=== PATIENT | female | born 1995 | race African-American/Black ===

== ENCOUNTER 2024-05-24 22:44 | Emergency (ER) | payer OTHER, SELFPAY ==
--- NOTE | 2024-05-24 22:52 | MHC.CARE ---
Pt contacted the CARE Team about an hour ago expressing suicidal ideation to cut her wrists however reported feeling safe with plan to transport herself to [facility] ED. Pt was tearful and reported she would begin packing a bag and hung up. Pt made this call from her personal cell phone from her apartment in [place]. CARE team contacted Pt about 15 minutes later to check-in and Pt expressed not feeling safe, not being able to focus and was tearful. T/W kept Pt on the phone while contacting TRANSITION PROGRAM MANAGER crisis for assistance who recommended to contact 911. T/W facilitated EMS transport for Pt who was in agreement and help-seeking. T/W was unaware of what ED Pt may end up at. Once PD arrived to the scene, T/W ended the phone call. The following information was provided by the Pt while speaking on the phone with T/W: Pt has a prior mental hx with a dx of Bipolar Disorder, PTSD and Anxiety. Pt reported that she was admitted to [facility]'s in 2018 with a step-down to [facility]'s PHP. She reports receiving medication changes to Lamotrigine about 1-2 months ago and has been medication compliant. She denies using substances. She denies doing anything to harm herself prior or while we are talking on the phone. She reports that she has been struggling with SI for 1-2 months which has gotten unbearable within the past week. She reports that the leatha she had feelings for did not reciprocate and that her mother, which whom Pt takes care of and is located in [place], is not doing well physically. 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
--- NOTE | 2024-05-24 23:14 | ED_ITS ---
HPI - General Adult General Chief complaint: Psychiatric Symptoms Stated complaint: SI, depression,anxiety,ptsd Time Seen by Provider: 05/24/24 23:14 History of Present Illness ED Provider: Catie AMEZQUITA narrative: The patient is a 28-year-old woman with a history of depression. She is on lamotrigine. She lives in [place]. She is new in [place]. She had previously been living in [place]. Apparently she has an elderly mother living in [place], [place]. She moved to [place] to be closer to [place] to help take care of her mother. She has been feeling somewhat isolated in [place]. 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 Apparently the patient called [facility] today because she has been feeling more depressed and has had thoughts of self-harm. She has been hitting herself in the head. She has not cut herself. She has not overdosed. When she called the hospital she was put through to 1 of the members of the care team who called 911 so that an ambulance was sent to the patient has [facility]. The patient wanted come to this hospital because she was treated psychiatrically here about 6 years ago. Related Data Home Medications ?Medication ?Instructions ?Recorded ?Confirmed lamotrigine 25 mg tablet 75 mg PO BEDTIME 05/25/24 05/25/24 Allergies Allergy/AdvReac Type Severity Reaction Status Date / Time gluten [GLUTEN] AdvReac Mild CRAMPS Unverified 05/24/24 23:36 DAIRY PRODUCTS AdvReac Mild STOMACH Uncoded 05/24/24 23:36 UPSET Review of Systems 2 Review of Systems: Yes all other systems are reviewed and are negative [facility] Social History Social History Advance Directives: No Advance Directives Information Provided: Yes Do you have a plan to hurt others: No Plan Physical Exam ED Vital Signs: Vital Signs - 24 hr 05/24/24 23:21 05/25/24 00:26 Temperature 98.4 F Pulse Rate 70 Respiratory Rate 16 Blood Pressure 120/84 Pulse Oximetry 98 100 Oxygen Delivery Method Room Air Room Air BMI result Body Mass Index 28.9 Const Other: The patient is awake, alert, pleasant, cooperative. She looks as if she is ordinarily healthy. She is very pleasant. HENNJ Head: Yes normal to inspection Face and sinus: Yes normal facial exam Mouth: Normal oral and palatal mucosa present and moist mucous membranes Eyes General: appearance normal, both eyes and all related structures Neck Neck: Yes full ROM Resp Effort & Inspection: normal respiratory effort Auscultation: clear to auscultation bilaterally Cardio Rate: regular rate Rhythm: regular rhythm Heart sounds: S1 normal heart sound present and S2 normal heart sound present GI Other: Abdomen is soft and nontender Skin Other: Skin is dry and unremarkable Neuro Other: The patient is awake and alert with a normal mental status. Demeanor is pleasant. Cranial nerves are intact. She moves all extremities normally and appropriately. She is neurologically intact. Extrem Other: No peripheral edema Psych Other: Well-groomed, pleasant Medications Administered Discontinued Medications Generic Name Dose Route Start Last Admin Trade Name Freq PRN Reason Stop Dose Admin Acetaminophen 975 mg 05/24/24 23:23 05/24/24 23:54 Acetaminophen 325 Mg Tablet PO 05/24/24 23:24 975 mg ONCE ONE Administration Diphenhydramine HCl 50 mg 05/24/24 23:55 05/24/24 23:59 Diphenhydramine Hcl 25 Mg Capsule PO 05/24/24 23:56 50 mg ONCE ONE Administration Ibuprofen 400 mg 05/24/24 23:23 05/24/24 23:54 Ibuprofen 400 Mg Tablet PO 05/24/24 23:24 400 mg ONCE ONE Administration Lorazepam 1 mg 05/25/24 00:19 05/25/24 00:26 Lorazepam 1 Mg Tablet PO 05/25/24 00:20 1 mg ONCE ONE Administration Medical Decision Making Medical Decision Making [facility] Narrative: The patient is a 28-year-old female with a history of depression who presents with worsening depression. She has had thoughts of self-harm. She has been hitting herself in the head. She has been panicky. This may be due to an increase in her lamotrigine. She also has life stressors. The patient seems medically clear for evaluation by the care team. The patient will be placed in physician observation. Lab Data 05/25/24 09:22 05/25/24 09:22 Labs: Lab Results 05/25/24 05/25/24 Range/Units 00:16 09:22 WBC 5.0 (4.8-10.8) X10*3/uL RBC 4.11 L (4.20-5.50) X10*6/uL Hgb 13.3 (12.0-16.0) g/dl Hct 39.1 (37.0-47.0) % MCV 95.1 (80.0-98.0) fL MCH 32.4 (27.0-33.0) pg MCHC 34.0 (31.0-35.0) g/dl RDW 12.6 (11.0-16.0) % Plt Count 335 (160-400) X10*3/uL MPV 9.0 L (9.4-12.3) fL Immature Gran % (Auto) 0.2 (0.0-0.4) % Neut % (Auto) 47.5 (45-73) % Lymph % (Auto) 38.7 (20-40) % [place] % (Auto) 8.2 (2-11) % Eos % (Auto) 3.6 (0-4) % Baso % (Auto) 1.8 (0-2) % Lymph # (Auto) 1.9 (1.2-4.9) X10*3/uL [place] # (Auto) 0.4 (0.1-1.2) X10*3/uL Eos # (Auto) 0.2 (0.0-0.4) X10*3/uL Baso # (Auto) 0.1 (0.0-0.2) X10*3/uL Abs Immat Gran (auto) 0.01 (0.00-0.03) X10*3/uL Absolute Neuts (auto) 2.4 (2.0-8.3) x10*3/uL Absolute Nucleated RBC 0.000 (0.0-0.012) X10*3/uL Nucleated RBC % (auto) 0.0 (0.0-0.2) /100WBC POC Glucose 77 (60-115) mg/dL Discharge Plan Discharge Clinical Impression: Depression with anxiety Patient Disposition: Still a Patient Prescriptions: No Action lamotrigine 25 mg tablet 75 mg PO BEDTIME Interventions: [place]-Suicide Risk Severity Scale Last Done: 05/25/24 01:54 Print Language: Ukrainian
[2024-05-24 23:21] VITALS: BP 120/78; BP 120/84; PULSE 70; PULSE 80; RESP 16; TEMP 36.9; O2SAT 100; O2SAT 98; BMI 28.9
[2024-05-24] MEDS: Acetaminophen 325 MG TABLET 975 MG PO (23:54)
[2024-05-24] MEDS: Ibuprofen 400 MG TABLET PO (23:54)
[2024-05-24] MEDS: diphenhydrAMINE HCL 25 MG CAPSULE 50 MG PO (23:59)
[2024-05-25 00:20] LABS: Glucose, Whole Blood 77 mg/dL (60-115)
[2024-05-25 00:26] VITALS: O2SAT 100
[2024-05-25] MEDS: LORazepam 1 MG TABLET PO (00:26)
--- NOTE | 2024-05-25 01:53 | PC.NURSE ---
patient chenged over by t/w no evidence of injuery to self or contraband present patient cooperative with change.
--- NOTE | 2024-05-25 05:19 | PC.NURSE ---
during lab draw patient began to experience inceasing anxiety and verbalized seeming like a panic attack' t/w contacted charge nurse regarding what t/w perceived was vasovagal type reposne to an attemtped lab draw. benadryl had been given already then t/w observed wnl vs. patient soone thereafter expressed what she perceived to be her throat closing potential arrangements had beeen made to move client to main ed. patient seemed to imporve after some administration of ativan and then soft soothing music allowed.
[2024-05-25 09:28] LABS: MANUAL DIFF FLAG NO
[2024-05-25 09:29] LABS: Basophils Absolute Auto 0.1 X10*3/uL (0.0-0.2); Basophils Percent Auto 1.8 % (0-2); Eosinophils Absolute Auto 0.2 X10*3/uL (0.0-0.4); Eosinophils Percent Auto 3.6 % (0-4); Hematocrit 39.1 % (37.0-47.0); Hemoglobin 13.3 g/dl (12.0-16.0); Imm Gran Abs Auto 0.01 X10*3/uL (0.00-0.03); Imm Gran Pct Auto 0.2 % (0.0-0.4); Lymphocytes Absolute Auto 1.9 X10*3/uL (1.2-4.9); Lymphocytes Percent Auto 38.7 % (20-40); Mean Corpuscular Hemoglobin 32.4 pg (27.0-33.0); Mean Corpuscular Volume 95.1 fL (80.0-98.0); Monocytes Absolute Auto 0.4 X10*3/uL (0.1-1.2); Monocytes Percent Auto 8.2 % (2-11); Neutrophils Absolute Auto 2.4 x10*3/uL (2.0-8.3); Neutrophils Percent Auto 47.5 % (45-73); Platelet Count 335 X10*3/uL (160-400); Red Blood Count 4.11 X10*6/uL (4.20-5.50); Red Cell Distribution Width 12.6 % (11.0-16.0)
[2024-05-25 09:48] LABS: Acetaminophen LAB < 3 mcg/mL (<30); Salicylate < 5.0 mg/dL (15-30)
[2024-05-25 09:57] LABS: Anion Gap 10 (12-20); Blood Urea Nitrogen 8 mg/dL (9-16); Calcium 9.6 mg/dL (8.4-10.2); Carbon Dioxide 23 mmol/L (22-29); Chloride 107 mmol/L (96-108); Creatinine Clr Calc Pharmacy 106.2; Estimated Glomerular Filt Rate > 60; Ethanol < 10 mg/dL; Glucose Random 96 mg/dL (60-115); HCG Quantitative < 2 mIU/mL; Sodium 136 mmol/L (135-145)
--- NOTE | 2024-05-25 10:10 | PC.NURSE ---
patient woke up this morning, tended to her ADLS. patient made phone call. patient is polite and cooperative. patient ate breakfast. resp even and unlabored, no signs of distress.
[2024-05-25 11:36] VITALS: BP 102/62; PULSE 98; RESP 18; TEMP 37; O2SAT 99
[2024-05-25] MEDS: guaiFENesin 200 MG/10 ML 10 ML LIQUID PO (11:48)
--- NOTE | 2024-05-25 13:31 | PHA.MEDREC ---
Addendum entered by Niles Matamoros 05/25/24 13:57: reviewed Original Note: Pharmacy Consult ? Medication Reconciliation Pharmacy confirmed med rec done by nursing. Lamotrigine 25mg tabs 75mg tabs daily were confirmed and looking in claims that matched. I spoke with the patient and she confirmed the Lamotrigine 25mg tab taking 3 tabs (75mg tabs) at bedtime around 1930 and states she takes a Slynd Control tablet once daily at the same time as the Lamotrigine 25mg tab. She confirmed she took the yesterday.
[2024-05-25 14:19] LABS: Appearance Urine Cloudy; Color Urine Yellow; Glucose Urine UA Negative (Negative); Leukocyte Esterase Urine Negative (Negative); Nitrite Urine Negative (Negative); PH 8.5 (5.0-9.0); UMIC TRIGGER UACC YES; Urine Blood Trace (Negative); Urine Ketones Negative (Negative); Urine Protein Negative (Neg-Trace)
[2024-05-25 14:21] LABS: UPreg QC Valid YES; Urine Pregnancy NEGATIVE (NEGATIVE)
[2024-05-25 14:22] LABS: Bacteria Urine None Seen (None Seen); Hyaline Casts Urine 0-2 /LPF (0-2); WBC Urine 0-5 /HPF (0-5)
[2024-05-25 14:24] LABS: Amphetamine Screen Urine Not Detected (Not Detect); Barbiturates, Urine Not Detected (Not Detect); Benzodiazepines Screen Urine Not Detected (Not Detect); Buprenorphine Scr Not Detected (Not Detect); Cannabinoid Screen Urine Not Detected (Not Detect); Cocaine Screen Urine Not Detected (Not Detect); Fentanyl, urine Not Detected (Not Detect); Methadone Screen, Urine Not Detected (Not Detect); Opiate Screen Urine Not Detected (Not Detect); Oxycodone Screen Urine Not Detected (Not Detect); Phencyclidine Screen Urine Not Detected (Not Detect)
--- NOTE | 2024-05-25 17:57 | MHC.CARE ---
Patient evaluated by the CARE Team, recommendation psychiatric consultation for disposition. ED provider Dr. Hu involved with this plan
[2024-05-25 21:17] VITALS: BP 107/73; PULSE 73; RESP 18; TEMP 36.8; O2SAT 98
[2024-05-25] MEDS: DROSPIRENONE 4 MG 1 EACH PO (21:43)
[2024-05-25] MEDS: lamoTRIgine 25 MG TABLET 75 MG PO (21:45)
--- NOTE | 2024-05-25 21:52 | PC.NURSE ---
Patient is alert and oriented x4, calm and cooperative, offers no complaints at this time. Patient ambulates independently with a steady gait. Patient medicated per MAR. Plan of care ongoing.
[2024-05-26 06:00] VITALS: BP 112/68; PULSE 97; RESP 16; TEMP 36.6; O2SAT 97
--- NOTE | 2024-05-26 06:27 | PC.NURSE ---
VSS, patient had uneventful night, awaiting care team consult this morning.
--- NOTE | 2024-05-26 08:38 | PM.PSYCN ---
History of Present Illness Date of Service: 05/26/2024 Chief Complaint: SI, depression,anxiety,ptsd Discussed with referring provider: Yes Sources of Information: patient interviewed, chart reviewed and crisis/core team assessment reviewed HPI Narrative: Ms. Soni is a 28 year-old woman who was brought via EMS after she called care team reporting increased suicidal ideation in context of recently breaking up romantic relationship. In the ED, pt reported she no longer felt suicidal, that had time to think about what was going on in her life and felt calmer. She reports multiple stressors from attempting to care for her mother who is homeless, to a failed romantic relationship with someone with who she would like to have a committed and longterm relationship but this person apparently not interested in this. Pt reports hx of trauma, details not disclosed, and difficult upbringing but overall appears very resilient and has been able to complete college and currently started new job. She does not have much social supports. She adamantly denies SI/HI, plan or intent to harm herself at this point. She reports she would be open to do outpatient intensive treatment instead of inpt dmission. No psychosis. No delusions. No clear hx of clemencia or hypomania. Diagnostics Vital Signs (24Hr): Vital Signs - 24 hr 05/25/24 11:36 05/25/24 21:17 05/26/24 06:00 Temperature 98.6 F 98.2 F 97.8 F Pulse Rate 98 73 97 Respiratory Rate 18 18 16 Blood Pressure 102/62 107/73 112/68 Pulse Oximetry 99 98 97 Oxygen Delivery Method Room Air Room Air Room Air BMI result Body Mass Index 28.9 Labs 05/25/24 09:22 05/25/24 09:22 Labs: Laboratory Results - last 48 hr 05/25/24 05/25/24 05/25/24 00:16 09:22 14:06 WBC 5.0 RBC 4.11 L Hgb 13.3 Hct 39.1 MCV 95.1 MCH 32.4 MCHC 34.0 RDW 12.6 Plt Count 335 MPV 9.0 L Immature Gran % (Auto) 0.2 Neut % (Auto) 47.5 Lymph % (Auto) 38.7 [place] % (Auto) 8.2 Eos % (Auto) 3.6 Baso % (Auto) 1.8 Lymph # (Auto) 1.9 [place] # (Auto) 0.4 Eos # (Auto) 0.2 Baso # (Auto) 0.1 Abs Immat Gran (auto) 0.01 Absolute Neuts (auto) 2.4 Absolute Nucleated RBC 0.000 Nucleated RBC % (auto) 0.0 Sodium 136 Potassium 4.0 Chloride 107 Carbon Dioxide 23 Anion Gap 10 L BUN 8 L Creatinine 0.89 Estim Creat Clear Calc 106.2 Estimated GFR > 60 POC Glucose 77 Random Glucose 96 Calcium 9.6 Beta HCG, Quant < 2 Urine Color Yellow Urine Appearance Cloudy Urine pH 8.5 Ur Specific [place] 1.020 Urine Protein Negative Urine Glucose (UA) Negative Urine Ketones Negative Urine Blood Trace H Urine Nitrite Negative Ur Leukocyte Esterase Negative Urine RBC 11-20 H Urine WBC 0-5 Ur Squamous Epith Cells 3-5 Urine Bacteria None Seen Hyaline Casts 0-2 Urine Test NEGATIVE Salicylates < 5.0 L Urine Opiates Screen Not Detected Ur Buprenorphine Scrn Not Detected Ur Oxycodone Screen Not Detected Urine Methadone Screen Not Detected Urine Fentanyl Screen Not Detected Acetaminophen < 3 Ur Barbiturates Screen Not Detected Ur Phencyclidine Scrn Not Detected Ur Amphetamines Screen Not Detected U Benzodiazepines Scrn Not Detected Urine Cocaine Screen Not Detected U Marijuana (THC) Screen Not Detected Ethyl Alcohol < 10 Mental Status Exam Mental Status Exam Patient Appearance: Well Grooomed Patient Orientation: Person, Place, Time and Situation Level of Consciousness: Appropriate Patient Behavior: Cooperative Mood Description: Appropriate Affect Description: Depressed Patient Cognition Impaired: No Speech Pattern: Clear and Appropriate Hallucinations: None Delusions: Not Present Thought Process: Linear Thought Content: positive for Intact (wanting tx but not inpt) Judgement: Fair Medications Medications Current Medications Lamotrigine (Lamotrigine 25 Mg Tablet) 75 mg PO BEDTIME [facility] Last Admin: 05/25/24 21:45 Dose: 75 mg Pt Own (Drospirenone (Contraceptive) [ Slynd] 4 Mg (28) Tablet) 1 tab PO DAILY RADHA Last Admin: 05/25/24 21:43 Dose: 1 tab Allergies Allergies Allergy/AdvReac Type Severity Reaction Status Date / Time gluten [GLUTEN] AdvReac Mild CRAMPS Unverified 05/24/24 23:36 DAIRY PRODUCTS AdvReac Mild STOMACH Uncoded 05/24/24 23:36 UPSET Assessment & Plan Assessment & Plan (1) Bipolar II disorder: Status: Acute Code(s): F31.81 - Bipolar II disorder Plan Ms. Soni is a 28 year-old woman who initially called care team, reported SI, they recommended pt come for assessment. She came via EMS. In the ED, pt denies any plan or intent to harm herself. She reported feeling calmer, but open to OP intensive tx. She was referred to PHP. Pt also advised to return should SI return or worsened. Total time managing care of this patient today ____ minutes.
--- NOTE | 2024-05-26 11:48 | MHC.CARE ---
Patient reassessed by the CARE Team and seen by the psychiatric provider, disposition discharge with referral to [facility]. Dr. Macias updated and in agreement with plan.
[2024-05-26 12:24] VITALS: BP 114/53; PULSE 86; RESP 16; TEMP 36.8; O2SAT 99
[2024-05-26 12:33] VITALS: BP 114/53; PULSE 86; RESP 16; TEMP 36.8; O2SAT 99
--- NOTE | 2024-05-26 12:39 | MHC.CARE ---
Referral to [facility] PHP complete.
== END 2024-05-26 12:34 | disposition home or self-care (01) ==
PROVIDERS: Emergency Provider Emergency Medicine; PCP Internal Medicine
DX: F33.1 Major depressive disorder, recurrent, moderate (principal); R45.851 Suicidal ideations; F41.1 Generalized anxiety disorder; F43.0 Acute stress reaction; R10.2 Pelvic and perineal pain; F43.9 Reaction to severe stress, unspecified; Z51.81 Encounter for therapeutic drug level monitoring; Z79.899 Other long term (current) drug therapy
CPT/HCPCS: 36415; 80048; 80143; 80179; 80307; 81001; 81025; 82947; 84702; 85025; 99285; S9485

== ENCOUNTER → 2024-05-24 23:52 | Outpatient (BNV) | payer OTHER, SELFPAY | PROVIDERS: Emergency Provider Emergency Medicine; PCP Internal Medicine; Visit Provider Social Worker | DX: F31.81 Bipolar II disorder (principal) | CPT/HCPCS: 99285 ==

== ENCOUNTER 2024-06-05 12:46 | Outpatient (REF) | payer OTHER, SELFPAY ==
--- OUTSIDE RECORDS SUMMARY | 2024-06-10 08:29 | XMS_ITS | Continuity of Care Document ---
Author Organization [facility] Address [address] [place] [address] Phone Care Team Providers Care Manager Java Name Role Phone Issac Lizarraga OD Unavailable Unavailable Allergies, Adverse Reactions, Alerts Substance Reaction Status Criticality No Known allergies Procedures Procedure Date EYE EXAM, NEW PATIENT REFRACTION Advance Directives Directive Yes / No Effective Date File Name No Information Encounters Encounter Description Practice Location Reason(s) For Visit Diagnoses Date Provider Providers Copied on Encounter [facility], [address] [place], [place], [facility]ly [facility], tel:[phone] [place] blurry vision (chief complaint) Refractive Error UnspecifiedRefr active Error Unspecified 4 Zia Davenport. [facility], [address] [facility] [address] , [place] [address], . tel:[phone] Referring Provider: Issac Perez, [facility] [address] [facility] [address] [place] [address]. tel:[phone] Family History Family Member Type Diagnosis Age At Onset No Information Payers Payer name Insurance type Covered republican ID Authoriza tion(s) [facility] Health Plan CI [id number] Social History Type Description Quantity Date Captured Comments Alcohol Use Details No Caffeine Use Details 1 cup per day Tobacco Use Status No Information Smoking Status No Information Sex Female Chief Complaint And Reason For Visit From encounter dated '11/19/2013 10:00'. blurry vision (chief complaint) Reason For Referral Reason For Referral No Information History Of Present Illness Encounter Date Complaint History Of Prese nt Illness No Information Functional Status Date Functional Assessmen t No Information Instructions Date Instruction Additional Infor liliana - Return in 2 years with Issac Lizarraga OD for Complete Exam. 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 New glasses Rx was given today. 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
== END 2024-06-05 12:47 | disposition home or self-care (01) ==
LOC: HO.LAB 12:46
PROVIDERS: Visit Provider Psychiatry & Neurology Psychiatry
DX: Z13.89 Encounter for screening for other disorder (principal)

== ENCOUNTER → 2024-06-09 08:08 | Outpatient (REF) | payer OTHER, SELFPAY ==
--- NOTE | 2024-06-09 08:17 | ECG_ITS ---
Test Reason : qtc check Blood Pressure : / mmHG Vent. Rate : 065 BPM Atrial Rate : 065 BPM P-R Int : 136 ms QRS Dur : 104 ms QT Int : 378 ms P-R-T Axes : 066 097 076 degrees QTc Int : 393 ms Normal sinus rhythm Rightward axis Borderline ECG When compared with ECG of 08-MAY-2018 11:29, No significant change was found Referred By: Sarah Beth Kenyon Electronically Signed By:RIMA BECKETT MD
[2024-06-09 08:56] LABS: MANUAL DIFF FLAG NO
[2024-06-09 09:12] LABS: Basophils Absolute Auto 0.1 X10*3/uL (0.0-0.2); Basophils Percent Auto 1.6 % (0-2); Eosinophils Absolute Auto 0.2 X10*3/uL (0.0-0.4); Eosinophils Percent Auto 4.4 % (0-4); Hematocrit 37.1 % (37.0-47.0); Hemoglobin 12.4 g/dl (12.0-16.0); Lymphocytes Absolute Auto 1.4 X10*3/uL (1.2-4.9); Lymphocytes Percent Auto 38.5 % (20-40); Mean Corpuscular HGB Conc 33.4 g/dl (31.0-35.0); Mean Corpuscular Hemoglobin 31.9 pg (27.0-33.0); Mean Corpuscular Volume 95.4 fL (80.0-98.0); Mean Platelet Volume 9.2 fL (9.4-12.3); Monocytes Absolute Auto 0.3 X10*3/uL (0.1-1.2); Monocytes Percent Auto 6.9 % (2-11); Neutrophils Absolute Auto 1.8 x10*3/uL (2.0-8.3); Neutrophils Percent Auto 48.6 % (45-73); Platelet Count 317 X10*3/uL (160-400); Red Blood Count 3.89 X10*6/uL (4.20-5.50); Red Cell Distribution Width 12.2 % (11.0-16.0); White Blood Count 3.6 X10*3/uL (4.8-10.8)
[2024-06-09 09:22] LABS: Appearance Urine Cloudy; Color Urine Yellow; Glucose Urine UA Negative (Negative); Leukocyte Esterase Urine Negative (Negative); Nitrite Urine Negative (Negative); PH 5.5 (5.0-9.0); Specific Gravity - Urine 1.025 (1.005-1.025); UMIC TRIGGER UA YES; Urine Blood Moderate (2+) (Negative); Urine Ketones Trace mg/dL (Negative); Urine Protein Trace mg/dL (Neg-Trace)
[2024-06-09 09:23] LABS: UPreg QC Valid YES; Urine Pregnancy NEGATIVE (NEGATIVE)
[2024-06-09 09:24] LABS: Bacteria Urine 1+ (None Seen); WBC Urine 0-5 /HPF (0-5)
[2024-06-09 09:38] LABS: Estimated Average Glucose 111 mg/dL; Hemoglobin A1C 113.0523 umol/L; Hemoglobin A1c % 5.5 % (<6.0); Total Hemoglobin (HGBA1C) 3125.1855 umol/L
[2024-06-09 09:50] LABS: Erythrocyte Sedimentation Rate 10 MM/HR (0-20)
[2024-06-09 09:54] LABS: Alanine Aminotransferase 14 U/L (0-31); Albumin Level 4.6 g/dL (3.5-5.0); Alkaline Phosphatase 32 U/L (39-117); Anion Gap 14 (12-20); Aspartate Amino Transferase 15 U/L (5-31); Bilirubin Total 0.5 mg/dL (0.0-1.0); Blood Urea Nitrogen 6 mg/dL (9-16); Calcium 9.7 mg/dL (8.4-10.2); Carbon Dioxide 25 mmol/L (22-29); Chloride 104 mmol/L (96-108); Cholesterol 247 mg/dL (<200); Estimated Glomerular Filt Rate > 60; Glucose Random 97 mg/dL (60-115); HDL Cholesterol 72 mg/dL (>40); LDL Cholesterol Calculated 154 mg/dL (<100); Magnesium 2.3 mg/dL (1.6-2.6); Phosphorus 3.8 mg/dL (2.7-4.5); Potassium 3.7 mmol/L (3.3-5.1); Sodium 139 mmol/L (135-145); Total Protein 7.8 g/dL (6.5-8.0); Triglycerides 106 mg/dL (<150)
[2024-06-09 10:07] LABS: Parathyroid Hormone Intact 46.5 pg/mL (8.7-77.1)
[2024-06-09 10:17] LABS: Folate 12.5 ng/mL (> or = 4.0); Vitamin B12 1656 pg/mL (200-900)
[2024-06-09 10:19] LABS: Ferritin 124 ng/mL (10-122); Free T4 (Free Thyroxine) 1.17 ng/dL (0.71-1.85); Thyroid Stimulating Hormone 1.24 uIU/mL (0.32-4.0); Vitamin D 25-OH Total 23.6 ng/mL (>30)
[2024-06-10 18:38] LABS: Homocysteine 7.8 umol/L (<10.4)
--- OUTSIDE RECORDS SUMMARY | 2024-06-10 18:44 | XMS_ITS | Continuity of Care Document ---
Author Organization [facility] Address [address] [place] [address] Phone Care Team Providers Care Medication Aide Name Role Phone Issac Lizarraga OD Unavailable Unavailable Allergies, Adverse Reactions, Alerts Substance Reaction Status Criticality No Known allergies Procedures Procedure Date EYE EXAM, NEW PATIENT REFRACTION Advance Directives Directive Yes / No Effective Date File Name No Information Encounters Encounter Description Practice Location Reason(s) For Visit Diagnoses Date Provider Providers Copied on Encounter [facility], [address] [place], [place], Formerly [facility], [facility], tel:[phone] [place] blurry vision (chief complaint) Refractive Error UnspecifiedRefr active Error Unspecified 4 Zia Davenport. [facility], [address] [facility] [address] , [place] [address], . tel:[phone] Referring Provider: Issac Perez, [facility] [address] [facility] [address] [place] [address]. tel:[phone] Family History Family Member Type Diagnosis Age At Onset No Information Payers Payer name Insurance type Covered democrat ID Authoriza tion(s) [facility] Health Plan CI [id number] Social History Type Description Quantity Date Captured [...]
== END ==
LOC: HO.CARD 08:08
PROVIDERS: Visit Provider Psychiatry & Neurology Psychiatry
DX: Z13.6 Encounter for screening for cardiovascular disorders (principal); Z13.1 Encounter for screening for diabetes mellitus; F39 Unspecified mood [affective] disorder
CPT/HCPCS: 36415; 80053; 80061; 81001; 81025; 82306; 82607; 82728; 82746; 83036; 83090; 83735; 83921; 83970; 84100; 84134; 84207; 84425; 84439; 84443; 85025; 85652; 93005

== ENCOUNTER → 2024-06-09 08:17 | Outpatient (BNV) | payer OTHER, SELFPAY | PROVIDERS: Visit Provider Internal Medicine Cardiovascular Disease | DX: I45.19 Other right bundle-branch block (principal); R94.31 Abnormal electrocardiogram [ECG] [EKG] | CPT/HCPCS: 93010 ==

== ENCOUNTER 2024-06-18 10:30 | Outpatient (RCR) | payer OTHER, SELFPAY ==
[2024-06-03 09:30] VITALS: BP 100/72; PULSE 62; RESP 18; TEMP 36.7
[2024-06-03 11:41] VITALS: BMI 23.0
--- NOTE | 2024-06-03 12:11 | PC.ADMIT ---
Shannon is a 36 year old female, reached out to the care team on 05/24/2024 seeking help for suicidal ideation. Shannon has a diagnosis of PTSD and Bipolar II. She reports these thoughts increased after after being on an on and off long distance relationship with a man that does not want to date exclusively and four months ago made it known that he is dating other women. Upon approach she is calm and pleasant, well groomed, speech is clear and concise. When asked how she felt stated Ok, she denied feeling anxious, reported endorsing 6/10 depression. When asked if she had any thoughts of wanting to hurt or kill self stated No. When asked if she had any thoughts of wanting to hurt or kill others stated No. She reports she has been struggling with Being able to distract myself. She reports her sleep Hasn't been the same, she reports she usually get 6 hours of sleep and Lately I've been getting only 3 to 4. She reports having trouble falling asleep, staying asleep and having nightmares. When asked what her goal was stated I want to be able to better manage my stress in life. Safety plan given to patient.
--- NOTE | 2024-06-04 16:19 | HO.PHP ---
Client's case has been opened and reviewed in team.
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
--- NOTE | 2024-06-08 13:05 | HO.PHP ---
This play writer met with Shannon after concerning comments lately surrounding SI. She has been struggling, and after checking in in group 1, it has been getting worse after the weekend, not better. She disclosed in the 3rd group with risk assessment group that she has been struggling with thoughts and self-harm. This play writer asked what that looked like, and she stated that she has punched herself in the past and has been thinking about cutting, but she has not done so previously. She reported no plans or intent, however. She stated that she thinks her sleep has been effecting her, as she gets woken up in the middle of the night and cannot fall back asleep. This happened Saturday, but on Saturday when this happened she took melatonin. This play writer explored what she is doing after program in which she said in group 3 [facility], but they are closed today. She reported having no other supports, and that is part of the reason she just feels tired of doing this. I have always felt unloved. This play writer explored the possibility of a support group in which she stated she does not know where she belongs. This play writer suggested maybe [facility] as she does not have an issue with substances. This appeared receptive. Shannon did report SI, but no plans or intent at this time. She shared she went grocery shopping this weekend, and she might go home and cook something and work on a sleep routine.
--- NOTE | 2024-06-11 16:56 | HO.PHP ---
Clinical update faxed today 06/11/24 to [facility] at [phone] with a request for 5 additional days to bring Shannon's discharge date to 06/18/24. [facility] is awaiting a response.
--- NOTE | 2024-06-12 14:28 | HO.PHP ---
Attempted to call Mayda [employer] Manager for [employer] for an extension. This conventional mortgage underwriter spoke with Munir who was covering for Mayda. Shannon was authorized for 5 more days with a discharge date of 06/18/24.
--- NOTE | 2024-06-16 10:53 | HO.PHP ---
Shannon's OP therapy apt is scheduled for June 19 at 11am with Suzanne Dexter (sp?) and her med prescriber apt is July 27 at 9am with Oni Anaya at the [facility] at [address] [place] [address].
--- NOTE | 2024-06-16 13:47 | PC.NURSE ---
New PCP appointment with Marisa Rosario [facility] with Dr Chiquis Valentine on January at 4:15 PM. Arrive 15 minutes early. Send previous PCP records prior to the appointment.
--- NOTE | 2024-06-17 09:56 | P.PNPSP_ITS ---
Subjective Subjective Date of Service: 06/16/24 Reason For Visit: PTSD Diagnostics Vital Signs (24Hr): BMI result Body Mass Index 23.0 Assessment & Plan Certification I certify that partial hospital treatment is medically necessary due to the symptoms and problems resulting from the patient's mental illness and the failure to treat the patient at the partial hospital level of care would likely result in the patient requiring inpatient psychiatric care which could not be prevented at a less intensive level of care. Total time managing care of this patient today ____ minutes. Discharge Plan Discharge Attending provider: Sarah Beth Kenyon Additional Instructions: Shannon's OP therapy intake apt is scheduled for June 19 at 11am with Suzanne Dexter (sp?) and her med prescriber apt is July 27 at 9am with Oni Anaya at the [facility] at [address] [place] [address]. New PCP appointment with [facility] with Dr Chiquis Valentine on January at 4:15 PM. Arrive 15 minutes early. Send previous PCP records prior to the appointment. Office #[phone]. Medications: New aripiprazole 2 mg tablet 2 mg PO BEDTIME Qty: 14 0RF prazosin 1 mg capsule 1 mg PO BEDTIME Qty: 14 0RF lamotrigine 100 mg tablet 100 mg PO DAILY Qty: 30 0RF Discontinued lamotrigine 25 mg tablet 75 mg PO BEDTIME No Action Slynd 4 mg (28) Tablet 1 tab PO DAILY multivitamin Tablet 1 tab PO DAILY calcium carb-D3-mag ox-zinc ox 1 tab PO DAILY cranberry 500 mg Capsule 500 mg PO DAILY Rx Instructions: administer with meals [place] 3 Fish Oil 684-1,200 mg Capsule,Delayed Release(Dr/Ec) 1 cap PO DAILY mecobalamin (vitamin B12) [B12 Active] 1,000 mcg Tablet,Chewable 3,000 mcg PO DAILY Stand Alone Forms: Patient Portal Discharge page Print Language: Tajik
--- NOTE | 2024-06-18 22:45 | P.PNPSP_ITS ---
Subjective Subjective Date of Service: 06/18/24 Reason For Visit: PTSD Interim History: dc Diagnostics Vital Signs (24Hr): BMI result Body Mass Index 23.0 Assessment & Plan Certification I certify that partial hospital treatment is medically necessary due to the symptoms and problems resulting from the patient's mental illness and the failure to treat the patient at the partial hospital level of care would likely result in the patient requiring inpatient psychiatric care which could not be prevented at a less intensive level of care. Total time managing care of this patient today ____ minutes. Discharge Plan Discharge Attending provider: Sarah Beth Kenyon Additional Instructions: Shannon's OP therapy intake apt is scheduled for June 19 at 11am with Suzanne Dexter (sp?) and her med prescriber apt is July 27 at 9am with Oni Anaya at the [facility] at [address] [place] [address]. New PCP appointment with [facility], [facility] with Dr Chiquis Valentine on January at 4:15 PM. Arrive 15 minutes early. Send previous PCP records prior to the appointment. Office #[phone]. Medications: New cholecalciferol (vitamin D3) [Vitamin D3] 125 mcg (5,000 unit) tablet 125 mcg PO DAILY Qty: 30 1RF lorazepam 0.5 mg tablet 0.25 - 0.5 mg PO DAILY PRN (Reason: anxiety) Qty: 10 0RF Continued Slynd 4 mg (28) Tablet 1 tab PO DAILY multivitamin Tablet 1 tab PO DAILY calcium carb-D3-mag ox-zinc ox 1 tab PO DAILY cranberry 500 mg Capsule 500 mg PO DAILY Rx Instructions: administer with meals omega-3 fatty acids-fish oil 684-1,200 mg Capsule,Delayed Release(Dr/Ec) 1 cap PO DAILY prazosin 1 mg capsule 1 mg PO BEDTIME Qty: 30 0RF lamotrigine 100 mg tablet 100 mg PO DAILY Qty: 30 0RF aripiprazole 2 mg tablet 2 mg PO BEDTIME Qty: 30 0RF Changed mecobalamin (vitamin B12) [B12 Active] 1,000 mcg Tablet,Chewable 1,000 mcg PO DAILY Qty: 30 0RF Discontinued lamotrigine 25 mg tablet 75 mg PO BEDTIME Stand Alone Forms: Patient Portal Discharge page Patient Education: Bipolar Disorder (DC), Post Traumatic Stress Disorder (DC) Print Language: Macedonian
--- NOTE | 2024-07-21 22:41 | PM.EVENT ---
Event Note Date of Service: 07/21/24 Event Note: Patient reached out to program for refills on prazosin and Abilify. Med prescriber appointment on 07/27/24. Rx efaxed to pharmacy. Time Spent With Patient Time: Total time managing care of this patient today ____ minutes.
== END 2024-06-18 23:59 | disposition home or self-care (01) ==
LOC: HO.PHPA 10:30
PROVIDERS: Visit Provider Psychiatry & Neurology Psychiatry
DX: F31.81 Bipolar II disorder (principal); F43.10 Post-traumatic stress disorder, unspecified; F41.3 Other mixed anxiety disorders
CPT/HCPCS: 90791; 90853